=== PATIENT | male | born 1985 | race Two or more races ===

== ENCOUNTER 2020-05-24 20:52 | Emergency (ER) | payer MEDICAID ==
[~2020-05-24] VITALS: Ht 185.4 cm; Wt 81.8 kg
[2020-05-24] MEDS ORDERED: BACITRACIN 0.9 GM PACKET OINTMENT TP ONE (22:30)
[2020-05-24 22:47] VITALS: BP 124/73
== END 2020-05-24 23:02 | disposition home or self-care (01) ==
LOC: EMS 20:52
DX: S90.821A Blister (nonthermal), right foot, initial encounter (principal); F17.210 Nicotine dependence, cigarettes, uncomplicated; X58.XXXA Exposure to other specified factors, initial encounter; Y93.89 Activity, other specified; Y92.89 Other specified places as the place of occurrence of the external cause; Y99.8 Other external cause status
CPT/HCPCS: Z7502; Z7610

== ENCOUNTER 2023-11-04 16:01 | Emergency (ER) | payer MEDICAID ==
[~2023-11-04] VITALS: Ht 185.4 cm; Wt 93.6 kg
[2023-11-04 16:07] VITALS: BP 132/75; PULSE 72; RESP 18; TEMP 98.4
[2023-11-04] MEDS ORDERED: BICT1TAB PO (16:11)
[2023-11-04] MEDS ORDERED: TRAM-559 PO ×3 (17:06→17:57)
[2023-11-04] MEDS ORDERED: AMOX1TAB16 PO ×2 (17:06→17:46)
[2023-11-04] MEDS ORDERED: AMOX TR/POT CLAV 875 MG/125 MG TABLET PO ONE ×2 (17:15→18:00)
[2023-11-04] MEDS ORDERED: TraMADol HCL 50 MG TABLET PO ONE (17:15)
== END 2023-11-04 18:01 | disposition home or self-care (01) ==
LOC: EMS 16:04
DX: K02.9 Dental caries, unspecified (principal); F17.210 Nicotine dependence, cigarettes, uncomplicated; F15.90 Other stimulant use, unspecified, uncomplicated
CPT/HCPCS: 99283